=== PATIENT | male | born 1965 | race Caucasian/White ===

== ENCOUNTER 2017-01-02 08:48 | Emergency (ER) | payer OTHER ==
[~2017-01-02 08:48] MED LIST: *UNABLE2; ADVIL PO; APRES50 PO; ASAB PO; B1100 PO; BENICAR20 PO; CAT1 PO; CENTRUM PO; CLONAZEPAM; COREG6 PO; COZAAR100 MG PO; FOLATE PO; FOLIC PO; HALF81 PO; IMDUR30 PO; KLONO1 PO; LASIX; LIPITOR80 MG PO; LISINOPRIL; MEVACOR40 MG PO; NORCO1 TA1 PO; PERCOCET; PERCOCET1 TA4 PO; PLAVIX PO; PRIN10 PO; PULRESP.5 INH; SPIRIVA INH; SPIRO25 PO; V5 PO
[2017-01-02 09:32] LABS: BASOPHILS 0.2 %; BASOPHILS ABSOLUTE 0.02 10/3/uL (0.0-0.16); EOSINOPHILS 0.7 %; EOSINOPHILS ABSOLUTE 0.06 10/3/uL (0.0-0.53); ER CBC TAT 0 Hrs 08 Mins; IMMATURE GRANULOCYTES 0.1 %; IMMATURE GRANULOCYTES ABSOLUTE 0.01 10/3/uL (0.0-0.11); LYMPHOCYTES ABSOLUTE 2.18 10/3/uL (0.67-4.30); MEAN CORPUS HGB CONC 33.3 g/dL (32.0-36.0); MEAN CORPUSCULAR HEMOGLOB 31.3 pg (26.0-34.0); MEAN CORPUSCULAR VOLUME 93.8 fL (80-100); MEAN PLATELET VOLUME 8.9 fL (9.2-13.0); MONOCYTES 8.8 %; MONOCYTES ABSOLUTE 0.74 10/3/uL (0.21-1.20); NEUTROPHILS 64.2 %; NEUTROPHILS ABSOLUTE 5.39 10/3/uL (2.02-8.40); PLATELET COUNT 191 10/3/uL (150-400); RBC DISTRIBUTION WIDTH 12.8 % (12.0-16.0); RED CELL COUNT 3.84 10/6/uL (4.7-6.1); WHITE BLOOD CELLS 8.4 10/3/uL (4.5-10.5)
[2017-01-02 09:33] LABS: MANUAL DIFF NO %
[2017-01-02 09:44] LABS: BUN (BLOOD UREA NITROGEN) 11 MG/DL (6-23); CHLORIDE, SERUM 107 MMOL/L (96-112); CO2 (CARBON DIOXIDE) 27 MMOL/L (24-34); CREATININE 0.55 MG/DL (0.70-1.30); GFR AFRICAN AMERICAN 138 ML/MIN (>=60); GFR NON AFRICAN AMERICAN 119 ML/MIN (>=60); GLUCOSE, SERUM 90 MG/DL (60-99); POTASSIUM, SERUM 4.2 MMOL/L (3.5-5.3); SODIUM, SERUM 142 MMOL/L (135-148)
== END 2017-01-02 10:24 | disposition home or self-care (01) ==
LOC: ER 08:48
PROVIDERS: Nurse Practitioner
DX: L03.115 Cellulitis of right lower limb (principal); M25.471 Effusion, right ankle; M25.571 Pain in right ankle and joints of right foot; J44.9 Chronic obstructive pulmonary disease, unspecified; I10 Essential (primary) hypertension; E11.9 Type 2 diabetes mellitus without complications; Z79.899 Other long term (current) drug therapy; Z79.82 Long term (current) use of aspirin
CPT/HCPCS: 73610-RT; 73630-RT; 80048; 85025; 99284; A9270-GY